=== PATIENT | male | born 1995 | race Caucasian/White ===

== ENCOUNTER 2021-06-29 12:31 | Emergency (ER) | payer BC ==
[2021-06-29] MEDS ORDERED: Fluorescein 1 MG Ophth Strip EYELF ONE (16:05)
[2021-06-29] MEDS ORDERED: Tetracaine HCl/PF 0.5% 4 ML Bottle EYELF ONE (16:05)
[2021-06-29] MEDS ORDERED: Gentamicin 0.3% Ophth Soln 5 ML Bottle EYELF ONE (16:06)
--- NOTE | 2021-06-29 16:25 | EDM.PDOC ---
Scribed by Yuliana Hopkins 06/29/21 2424 for Vj Payne MD ED HPI GENERAL MEDICAL PROBLEM - General Chief Complaint: Eye Problems Stated Complaint: [id number] SOMETHING IN LEFT EYE Time Seen by Provider: 06/29/21 16:05 Source of Information: Reports: Patient, RN, RN Notes Reviewed History Limitations: Reports: No Limitations - History of Present Illness INITIAL COMMENTS - FREE TEXT/NARRATIVE: Patient presents to ED by POV with complaint of L eye scratches and patient states it feels as if something is in there. States 'white/green discharge' to L eye. Drainage is scant. Patient does wear contacts and they are currently in. Visual acuity done and it is 20/25 vision. Patient did do saline flush to eye last night, no noted relief. Onset Date: 06/28/21 Duration: Getting Worse Location: Reports: Other (left eye) Quality: Reports: Ache Severity: Moderate Improves with: Reports: None Worsens with: Reports: None Associated Symptoms: Reports: No Other Symptoms Left Eye Pain Score (Numeric/FACES): 4 - Related Data Allergies Allergy/AdvReac Type Severity Reaction Status Date / Time No Known Allergies Allergy Verified 06/29/21 15:52 Home Meds: Home Meds . [No Known Home Meds] 06/29/21 [History] Past Medical History - Past Health History Medical/Surgical History: Denies Medical/Surgical History Social & Family History - Caffeine Use Caffeine Use: Reports: Soda - Recreational Drug Use Recreational Drug Use: No ED ROS GENERAL - Review of Systems Review Of Systems: Comprehensive ROS is negative, except as noted in HPI. ED EXAM GENERAL W FULL EYE - Physical Exam Exam: See Below Exam Limited By: No Limitations General Appearance: Alert, WD/WN, No Apparent Distress Eye Exam: Left Eye: Normal Inspection, Bilateral Eye: EOMI, PERRL Visual Acuity (R) 20/: 25 Visual Acuity (L) 20/: 25 With Correction: Yes Eyelids: Bilateral: Normal Appearance Conjunctiva & Sclera: Right: Normal Appearance, Left: Discharge, Injected Cornea Exam: Right: Normal Appearance, Left: Corneal Abrasion, Examined with Flourescein Extraocular Movements: Bilateral: Intact Pupils: Normal Accommodation Pupillary Size: Bilateral: 3 mm Pupillary Reaction: Bilateral: Brisk Nose: Normal Inspection Throat/Mouth: Normal Voice, No Airway Compromise Head: Atraumatic, Normocephalic Neck: Normal Inspection Respiratory/Chest: No Respiratory Distress Neurological: Alert, Oriented, No Motor/Sensory Deficits Psychiatric: Normal Mood Skin Exam: Warm, Dry, Normal Color Course - Vital Signs Last Recorded V/S: Last Vital Signs Temp 96.9 F 06/29/21 15:48 Pulse 65 06/29/21 15:48 Resp 20 06/29/21 15:48 BP 145/102 H 06/29/21 16:09 Pulse Ox 100 06/29/21 15:48 - Orders/Labs/Meds Meds: Medications Discontinued Medications Generic Name Dose Route Start Last Admin Trade Name Freq PRN Reason Stop Dose Admin Fluorescein Sodium 1 mg 06/29/21 16:05 Fluorescein 1 Mg Ophth Strip EYELF 06/29/21 16:06 ONETIME ONE Gentamicin Sulfate 1 ml 06/29/21 16:06 Gentamicin 0.3% Ophth Soln 5 Ml Bottle EYELF 06/29/21 16:07 ONETIME ONE Tetracaine HCl 1 ml 06/29/21 16:05 Tetracaine Hcl/Pf 0.5% 4 Ml Bottle EYELF 06/29/21 16:06 ONETIME ONE Departure - Departure Time of Disposition: 16:19 Disposition: Home, Self-Care 01 Condition: Good Clinical Impression: Left corneal abrasion Qualifiers: Encounter type: initial encounter Qualified Code(s): S05.02XA - Injury of conjunctiva and corneal abrasion without foreign body, left eye, initial encounter - Discharge Information *PRESCRIPTION DRUG MONITORING PROGRAM REVIEWED*: Not Applicable *COPY OF PRESCRIPTION DRUG MONITORING REPORT IN PATIENT KATHERYN: Not Applicable Instructions: Corneal Abrasion, [id number] Forms: ED Department Discharge Additional Instructions: Gentamicin Ophthalmic Solution 0.3% One drop in left eye four times a day for five days. Wear sunglasses to reduce eye sensitivity and irritation. Do not wear contact lenses for 7 days. Follow up with eye clinic in 3 to 4 days for recheck. Sepsis Event Note (ED) - Focused Exam Vital Signs: Vital Signs Temp Pulse Resp BP Pulse Ox 06/29/21 16:09 145/102 H 06/29/21 15:48 96.9 F 65 20 150/99 H 100 I have read and agree with the documentation that has been completed regarding this visit. By signing this record, I attest that the documentation was completed in my physical presence and is an accurate record of the encounter.
== END 2021-06-29 16:34 | disposition home or self-care (01) ==
LOC: DL.ED 12:31
DX: S05.02XA Injury of conjunctiva and corneal abrasion without foreign body, left eye, initial encounter (principal); W22.8XXA Striking against or struck by other objects, initial encounter
CPT/HCPCS: 99283; A9270